=== PATIENT | female | born 1975 | race African-American/Black ===

== ENCOUNTER 2020-10-13 11:13 | Inpatient (IN) | payer OTHER ==
[2020-10-13 15:40] VITALS: BMI 36.8
[2020-10-13] MEDS ORDERED: MAGNESIUM CITRATE 300 ML BOTTLE PO PRN (16:56)
[2020-10-13] MEDS ORDERED: ONDANSETRON *ODT* 4 MG TABLET SL PRN (16:56)
[2020-10-13] MEDS ORDERED: ACETAMINOPHEN 325 MG TABLET (FP) PO PRN ×2 (16:56)
[2020-10-13] MEDS ORDERED: MAGNESIUM HYDROX 2400MG/30ML ORAL SUSPENSION 30 ML CUP PO PRN (16:56)
[2020-10-13] MEDS ORDERED: NICOTINE POLACRILEX 2 MG GUM BUC PRN (16:56)
[2020-10-13] MEDS ORDERED: chlordiazePOXIDE HCL 25 MG CAPSULE PO PRN (16:56)
[2020-10-13] MEDS ORDERED: MENTHOL/PHENOL 1 EACH UD MM PRN (16:56)
[2020-10-13] MEDS ORDERED: MAG HYDROX/AL HYDROX/SIMETH 30 ML UNIT-DOSE CUP PO PRN (16:56)
[2020-10-13] MEDS ORDERED: BISMUTH SUBSALICYLATE 524 MG/30 ML UD PO PRN (16:56)
[2020-10-13] MEDS ORDERED: chlordiazePOXIDE HCL 25 MG CAPSULE PO ONE (17:30)
[2020-10-13] MEDS ORDERED: METHADONE HCL 10 MG TABLET (FOR DETOX USE ONLY) PO ONE (17:45)
[2020-10-13] MEDS: THIAMINE HCL 100 MG TABLET (FP) PO SCH (22:07)
[2020-10-13] MEDS: chlordiazePOXIDE HCL 25 MG CAPSULE PO SCH (22:08)
[2020-10-13] MEDS: MELATONIN 5 MG TABLETS PO PRN (22:09)
[2020-10-13] MEDS: METHOCARBAMOL 500 MG TABLET PO PRN (22:09)
[2020-10-14] MEDS: cloNIDine HCL 0.1 MG TABLET PO PRN ×3 (00:08→21:01)
[2020-10-14] MEDS: chlordiazePOXIDE HCL 25 MG CAPSULE PO SCH ×4 (06:00→22:05)
[2020-10-14] MEDS ORDERED: METHADONE HCL 5 MG TABLET (FOR DETOX USE ONLY) ONE (08:14)
[2020-10-14] MEDS ORDERED: METHADONE HCL 10 MG TABLET (FOR DETOX USE ONLY) ONE (08:14)
[2020-10-14] MEDS ORDERED: METHADONE (DETOX) 20 MG, METHADONE (DETOX) 5 MG PO ONE (10:00)
[2020-10-14] MEDS: PRENATAL VITAMINS W/ FOLIC ACID TABLET (FP) PO SCH (10:09)
[2020-10-14] MEDS: FAMOTIDINE 20 MG TABLET PO SCH (10:10)
[2020-10-14] MEDS: NICOTINE 14 MG/24 HOURS TOPICAL PATCH TD SCH (10:11)
[2020-10-14] MEDS: IBUPROFEN 400 MG TABLET (FP) PO PRN (10:12)
[2020-10-14] MEDS ORDERED: MASKS NR ONE (11:39)
[2020-10-14 13:05] LABS: HEMATOCRIT 34.5 % (32.4-45.2); HEMOGLOBIN 11.3 GM/dL (10.7-15.3); MCH 27.6 pg (25.7-33.7); MCHC 32.9 g/dl (32.0-36.0); MEAN CELL VOLUME 83.9 fl (80-96); MEAN PLT VOLUME 9.4 fl (7.5-11.1); PLATELET COUNT 315 K/MM3 (134-434); RBC 4.11 M/mm3 (3.60-5.2); RDW 16.1 % (11.6-15.6); WHITE BLOOD COUNT 7.8 K/mm3 (4.0-10.0)
[2020-10-14 13:09] LABS: POTASSIUM 4.4 mmol/L (3.5-5.1)
[2020-10-14 13:14] LABS: CALCIUM 8.6 mg/dL (8.5-10.1)
[2020-10-14 13:15] LABS: ALBUMIN 2.7 g/dl (3.4-5.0); BLOOD UREA NITROGEN 14.1 mg/dL (7-18)
[2020-10-14 13:19] LABS: BILIRUBIN,TOTAL 0.7 mg/dL (0.2-1); CREATININE 0.7 mg/dL (0.55-1.3)
[2020-10-14] MEDS: DIVALPROEX SODIUM 500 MG TABLET E.C. PO SCH (22:06)
[2020-10-14] MEDS: OLANZapine 10 MG TABLET PO SCH (22:06)
[2020-10-14] MEDS: MELATONIN 5 MG TABLETS PO PRN (22:07)
[2020-10-14] MEDS: traZODone HCL 50 MG TABLET (FP) PO SCH (22:07)
[2020-10-14] MEDS: THIAMINE HCL 100 MG TABLET (FP) PO SCH (22:07)
[2020-10-15] MEDS: chlordiazePOXIDE HCL 25 MG CAPSULE PO SCH ×4 (06:12→22:33)
[2020-10-15] MEDS ORDERED: METHADONE HCL 10 MG TABLET (FOR DETOX USE ONLY) PO ONE (10:00)
[2020-10-15] MEDS: DIVALPROEX SODIUM 500 MG TABLET E.C. PO SCH ×2 (10:07→22:32)
[2020-10-15] MEDS: METHOCARBAMOL 500 MG TABLET PO PRN (10:07)
[2020-10-15] MEDS: PRENATAL VITAMINS W/ FOLIC ACID TABLET (FP) PO SCH (10:07)
[2020-10-15] MEDS: FAMOTIDINE 20 MG TABLET PO SCH (10:08)
[2020-10-15] MEDS: NICOTINE 14 MG/24 HOURS TOPICAL PATCH TD SCH (10:09)
[2020-10-15] MEDS ORDERED: FLU VACCINE (FLULAVAL) PF 60 MCG/0.5 ML SYRINGE 2020-2021 IM ONE (12:00)
[2020-10-15] MEDS: IBUPROFEN 400 MG TABLET (FP) PO PRN (17:39)
[2020-10-15] MEDS: OLANZapine 10 MG TABLET PO SCH (22:32)
[2020-10-15] MEDS: traZODone HCL 50 MG TABLET (FP) PO SCH (22:32)
[2020-10-15] MEDS: THIAMINE HCL 100 MG TABLET (FP) PO SCH (23:25)
[2020-10-16] MEDS ORDERED: chlordiazePOXIDE HCL 10 MG CAPSULE PO PRN
[2020-10-16] MEDS: chlordiazePOXIDE HCL 10 MG CAPSULE PO SCH ×4 (05:52→22:12)
[2020-10-16] MEDS ORDERED: METHADONE HCL 5 MG TABLET (FOR DETOX USE ONLY) ONE (09:31)
[2020-10-16] MEDS ORDERED: METHADONE HCL 10 MG TABLET (FOR DETOX USE ONLY) ONE (09:31)
[2020-10-16] MEDS ORDERED: METHADONE (DETOX) 10 MG, METHADONE (DETOX) 5 MG PO ONE (10:00)
[2020-10-16] MEDS: DIVALPROEX SODIUM 500 MG TABLET E.C. PO SCH ×2 (10:22→22:12)
[2020-10-16] MEDS: PRENATAL VITAMINS W/ FOLIC ACID TABLET (FP) PO SCH (10:22)
[2020-10-16] MEDS: NICOTINE 14 MG/24 HOURS TOPICAL PATCH TD SCH (10:23)
[2020-10-16] MEDS: FAMOTIDINE 20 MG TABLET PO SCH (10:23)
[2020-10-16] MEDS: OLANZapine 10 MG TABLET PO SCH (22:12)
[2020-10-16] MEDS: traZODone HCL 50 MG TABLET (FP) PO SCH (22:12)
[2020-10-16] MEDS: THIAMINE HCL 100 MG TABLET (FP) PO SCH (22:12)
[2020-10-16] MEDS: MELATONIN 5 MG TABLETS PO PRN (22:30)
[2020-10-17] MEDS ORDERED: guaiFENesin/D-METHORPHAN HB 10 ML UNIT-DOSE CUPS PO PRN (06:49)
[2020-10-17] MEDS: NICOTINE 14 MG/24 HOURS TOPICAL PATCH TD SCH (09:43)
[2020-10-17] MEDS: DIVALPROEX SODIUM 500 MG TABLET E.C. PO SCH ×2 (09:47→22:24)
[2020-10-17] MEDS: FAMOTIDINE 20 MG TABLET PO SCH (09:47)
[2020-10-17] MEDS: PRENATAL VITAMINS W/ FOLIC ACID TABLET (FP) PO SCH (09:48)
[2020-10-17] MEDS ORDERED: guaiFENesin 200 MG/10 ML 10 ML UNIT-DOSE CUPS PO PRN (09:56)
[2020-10-17] MEDS ORDERED: METHADONE HCL 10 MG TABLET (FOR DETOX USE ONLY) PO ONE (10:00)
[2020-10-17] MEDS: chlordiazePOXIDE HCL 10 MG CAPSULE PO SCH ×2 (10:19→17:30)
[2020-10-17] MEDS ORDERED: MASKS NR ONE (18:32)
[2020-10-17] MEDS: METHOCARBAMOL 500 MG TABLET PO PRN (18:40)
[2020-10-17] MEDS ORDERED: OLANZapine 7.5 MG TABLET PO SCH (22:00)
[2020-10-17] MEDS: OLANZapine 10 MG TABLET PO SCH (22:24)
[2020-10-17] MEDS: traZODone HCL 50 MG TABLET (FP) PO SCH (22:24)
[2020-10-17] MEDS: THIAMINE HCL 100 MG TABLET (FP) PO SCH (22:24)
[2020-10-17] MEDS: MELATONIN 5 MG TABLETS PO PRN (22:24)
[2020-10-17] MEDS: IBUPROFEN 400 MG TABLET (FP) PO PRN (22:26)
[2020-10-18] MEDS ORDERED: chlordiazePOXIDE HCL 10 MG CAPSULE PO ONE (05:00)
[2020-10-18] MEDS ORDERED: METHADONE HCL 5 MG TABLET (FOR DETOX USE ONLY) PO ONE (06:00)
[2020-10-18] MEDS: DIVALPROEX SODIUM 500 MG TABLET E.C. PO SCH ×2 (09:41→21:26)
[2020-10-18] MEDS: PRENATAL VITAMINS W/ FOLIC ACID TABLET (FP) PO SCH (09:41)
[2020-10-18] MEDS: METHOCARBAMOL 500 MG TABLET PO PRN (09:41)
[2020-10-18] MEDS: IBUPROFEN 400 MG TABLET (FP) PO PRN ×2 (09:41→21:27)
[2020-10-18] MEDS: FAMOTIDINE 20 MG TABLET PO SCH (09:43)
[2020-10-18] MEDS: NICOTINE 14 MG/24 HOURS TOPICAL PATCH TD SCH (09:44)
[2020-10-18] MEDS ORDERED: MASKS NR ONE (18:31)
[2020-10-18] MEDS: OLANZapine 10 MG TABLET PO SCH (21:25)
[2020-10-18] MEDS: traZODone HCL 50 MG TABLET (FP) PO SCH (21:26)
[2020-10-18] MEDS: THIAMINE HCL 100 MG TABLET (FP) PO SCH (21:26)
[2020-10-18] MEDS: MELATONIN 5 MG TABLETS PO PRN (21:26)
[2020-10-19] MEDS: METHOCARBAMOL 500 MG TABLET PO PRN (06:41)
[2020-10-19] MEDS: PRENATAL VITAMINS W/ FOLIC ACID TABLET (FP) PO SCH (10:37)
[2020-10-19] MEDS: DIVALPROEX SODIUM 500 MG TABLET E.C. PO SCH ×2 (10:37→21:17)
[2020-10-19] MEDS: FAMOTIDINE 20 MG TABLET PO SCH (10:37)
[2020-10-19] MEDS: NICOTINE 14 MG/24 HOURS TOPICAL PATCH TD SCH (10:37)
[2020-10-19] MEDS ORDERED: MASKS NR ONE (18:18)
[2020-10-19] MEDS: OLANZapine 10 MG TABLET PO SCH (21:16)
[2020-10-19] MEDS: THIAMINE HCL 100 MG TABLET (FP) PO SCH (21:17)
[2020-10-19] MEDS: traZODone HCL 50 MG TABLET (FP) PO SCH (21:17)
[2020-10-20] MEDS: NICOTINE 14 MG/24 HOURS TOPICAL PATCH TD SCH (10:35)
[2020-10-20] MEDS: FAMOTIDINE 20 MG TABLET PO SCH (10:35)
[2020-10-20] MEDS: PRENATAL VITAMINS W/ FOLIC ACID TABLET (FP) PO SCH (10:35)
[2020-10-20] MEDS: DIVALPROEX SODIUM 500 MG TABLET E.C. PO SCH ×2 (10:35→21:17)
[2020-10-20] MEDS: IBUPROFEN 400 MG TABLET (FP) PO PRN (12:43)
[2020-10-20] MEDS: traZODone HCL 50 MG TABLET (FP) PO SCH (21:18)
[2020-10-20] MEDS: THIAMINE HCL 100 MG TABLET (FP) PO SCH (21:18)
[2020-10-20] MEDS: OLANZapine 10 MG TABLET PO SCH (21:18)
[2020-10-21] MEDS: PRENATAL VITAMINS W/ FOLIC ACID TABLET (FP) PO SCH (10:43)
[2020-10-21] MEDS: DIVALPROEX SODIUM 500 MG TABLET E.C. PO SCH ×2 (10:43→21:14)
[2020-10-21] MEDS: FAMOTIDINE 20 MG TABLET PO SCH (10:43)
[2020-10-21] MEDS: NICOTINE 14 MG/24 HOURS TOPICAL PATCH TD SCH (10:43)
[2020-10-21] MEDS: busPIRone HCL 5 MG TABLET PO PRN (12:56)
[2020-10-21] MEDS ORDERED: MASKS NR ONE (13:01)
[2020-10-21] MEDS: THIAMINE HCL 100 MG TABLET (FP) PO SCH (21:13)
[2020-10-21] MEDS: MELATONIN 5 MG TABLETS PO PRN (21:13)
[2020-10-21] MEDS: OLANZapine 10 MG TABLET PO SCH (21:13)
[2020-10-21] MEDS: traZODone HCL 50 MG TABLET (FP) PO SCH (21:14)
[2020-10-21] MEDS: IBUPROFEN 400 MG TABLET (FP) PO PRN (21:14)
[2020-10-22] MEDS: DIVALPROEX SODIUM 500 MG TABLET E.C. PO SCH ×2 (10:16→21:17)
[2020-10-22] MEDS: NICOTINE 14 MG/24 HOURS TOPICAL PATCH TD SCH (10:16)
[2020-10-22] MEDS: PRENATAL VITAMINS W/ FOLIC ACID TABLET (FP) PO SCH (10:16)
[2020-10-22] MEDS: FAMOTIDINE 20 MG TABLET PO SCH (10:16)
[2020-10-22] MEDS: IBUPROFEN 400 MG TABLET (FP) PO PRN (16:54)
[2020-10-22] MEDS: OLANZapine 10 MG TABLET PO SCH (21:17)
[2020-10-22] MEDS: traZODone HCL 50 MG TABLET (FP) PO SCH (21:17)
[2020-10-22] MEDS: THIAMINE HCL 100 MG TABLET (FP) PO SCH (21:17)
[2020-10-22] MEDS: MELATONIN 5 MG TABLETS PO PRN (21:17)
[2020-10-22] MEDS: busPIRone HCL 5 MG TABLET PO PRN (21:20)
[2020-10-23] MEDS: DIVALPROEX SODIUM 500 MG TABLET E.C. PO SCH ×2 (10:38→21:23)
[2020-10-23] MEDS: PRENATAL VITAMINS W/ FOLIC ACID TABLET (FP) PO SCH (10:38)
[2020-10-23] MEDS: NICOTINE 14 MG/24 HOURS TOPICAL PATCH TD SCH (10:38)
[2020-10-23] MEDS: FAMOTIDINE 20 MG TABLET PO SCH (10:38)
[2020-10-23] MEDS: traZODone HCL 50 MG TABLET (FP) PO SCH (21:22)
[2020-10-23] MEDS: CYCLOBENZAPRINE HCL 5 MG TABLET PO SCH (21:23)
[2020-10-23] MEDS: METHYL SALICYLATE/MENTHOL OINT 30 GM TUBE TP SCH (21:23)
[2020-10-23] MEDS: OLANZapine 10 MG TABLET PO SCH (21:23)
[2020-10-23] MEDS: THIAMINE HCL 100 MG TABLET (FP) PO SCH (21:23)
[2020-10-23] MEDS: MELATONIN 5 MG TABLETS PO PRN (21:25)
[2020-10-24] MEDS: DIVALPROEX SODIUM 500 MG TABLET E.C. PO SCH ×2 (10:25→21:18)
[2020-10-24] MEDS: FAMOTIDINE 20 MG TABLET PO SCH (10:25)
[2020-10-24] MEDS: PRENATAL VITAMINS W/ FOLIC ACID TABLET (FP) PO SCH (10:25)
[2020-10-24] MEDS: METHYL SALICYLATE/MENTHOL OINT 30 GM TUBE TP SCH ×2 (10:26→21:20)
[2020-10-24] MEDS: NICOTINE 14 MG/24 HOURS TOPICAL PATCH TD SCH (10:26)
[2020-10-24] MEDS: IBUPROFEN 400 MG TABLET (FP) PO PRN (15:24)
[2020-10-24] MEDS: CYCLOBENZAPRINE HCL 5 MG TABLET PO SCH (21:18)
[2020-10-24] MEDS: MELATONIN 5 MG TABLETS PO PRN (21:18)
[2020-10-24] MEDS: busPIRone HCL 5 MG TABLET PO PRN (21:18)
[2020-10-24] MEDS: OLANZapine 10 MG TABLET PO SCH (21:18)
[2020-10-24] MEDS: traZODone HCL 50 MG TABLET (FP) PO SCH (21:19)
[2020-10-24] MEDS: THIAMINE HCL 100 MG TABLET (FP) PO SCH (21:19)
[2020-10-25] MEDS: PRENATAL VITAMINS W/ FOLIC ACID TABLET (FP) PO SCH (09:57)
[2020-10-25] MEDS: FAMOTIDINE 20 MG TABLET PO SCH (09:57)
[2020-10-25] MEDS: NICOTINE 14 MG/24 HOURS TOPICAL PATCH TD SCH (09:57)
[2020-10-25] MEDS: DIVALPROEX SODIUM 500 MG TABLET E.C. PO SCH ×2 (09:57→21:15)
[2020-10-25] MEDS: busPIRone HCL 5 MG TABLET PO PRN (10:24)
[2020-10-25] MEDS: METHYL SALICYLATE/MENTHOL OINT 30 GM TUBE TP SCH ×2 (10:26→21:19)
[2020-10-25] MEDS: CYCLOBENZAPRINE HCL 5 MG TABLET PO SCH (21:15)
[2020-10-25] MEDS: OLANZapine 10 MG TABLET PO SCH (21:16)
[2020-10-25] MEDS: IBUPROFEN 400 MG TABLET (FP) PO PRN (21:16)
[2020-10-25] MEDS: THIAMINE HCL 100 MG TABLET (FP) PO SCH (21:16)
[2020-10-25] MEDS: MELATONIN 5 MG TABLETS PO PRN (21:16)
[2020-10-25] MEDS: traZODone HCL 50 MG TABLET (FP) PO SCH (21:16)
[2020-10-26] MEDS: DIVALPROEX SODIUM 500 MG TABLET E.C. PO SCH ×2 (10:25→21:25)
[2020-10-26] MEDS: FAMOTIDINE 20 MG TABLET PO SCH (10:25)
[2020-10-26] MEDS: PRENATAL VITAMINS W/ FOLIC ACID TABLET (FP) PO SCH (10:25)
[2020-10-26] MEDS: NICOTINE 14 MG/24 HOURS TOPICAL PATCH TD SCH (10:25)
[2020-10-26] MEDS: METHYL SALICYLATE/MENTHOL OINT 30 GM TUBE TP SCH ×2 (10:25→21:26)
[2020-10-26] MEDS: IBUPROFEN 400 MG TABLET (FP) PO PRN (10:26)
[2020-10-26] MEDS: busPIRone HCL 5 MG TABLET PO PRN ×2 (10:26→21:26)
[2020-10-26] MEDS: CYCLOBENZAPRINE HCL 5 MG TABLET PO SCH (21:25)
[2020-10-26] MEDS: OLANZapine 10 MG TABLET PO SCH (21:26)
[2020-10-26] MEDS: MELATONIN 5 MG TABLETS PO PRN (21:26)
[2020-10-26] MEDS: traZODone HCL 50 MG TABLET (FP) PO SCH (21:26)
[2020-10-26] MEDS: THIAMINE HCL 100 MG TABLET (FP) PO SCH (21:26)
[2020-10-27] MEDS: FAMOTIDINE 20 MG TABLET PO SCH (10:12)
[2020-10-27] MEDS: DIVALPROEX SODIUM 500 MG TABLET E.C. PO SCH (10:12)
[2020-10-27] MEDS: IBUPROFEN 400 MG TABLET (FP) PO PRN (10:12)
[2020-10-27] MEDS: NICOTINE 14 MG/24 HOURS TOPICAL PATCH TD SCH (10:12)
[2020-10-27] MEDS: PRENATAL VITAMINS W/ FOLIC ACID TABLET (FP) PO SCH (10:12)
[2020-10-27] MEDS: METHYL SALICYLATE/MENTHOL OINT 30 GM TUBE TP SCH ×2 (10:14→21:12)
[2020-10-27] MEDS: OLANZapine 7.5 MG TABLET PO SCH (21:09)
[2020-10-27] MEDS: CYCLOBENZAPRINE HCL 5 MG TABLET PO SCH (21:10)
[2020-10-27] MEDS: traZODone HCL 50 MG TABLET (FP) PO SCH (21:10)
[2020-10-27] MEDS: DIVALPROEX SODIUM 250 MG TABLET E.C. PO SCH (21:10)
[2020-10-27] MEDS: THIAMINE HCL 100 MG TABLET (FP) PO SCH (21:10)
[2020-10-27] MEDS: MELATONIN 5 MG TABLETS PO PRN (21:11)
[2020-10-28] MEDS: DIVALPROEX SODIUM 250 MG TABLET E.C. PO SCH ×2 (10:15→21:41)
[2020-10-28] MEDS: PRENATAL VITAMINS W/ FOLIC ACID TABLET (FP) PO SCH (10:15)
[2020-10-28] MEDS: FAMOTIDINE 20 MG TABLET PO SCH (10:16)
[2020-10-28] MEDS: NICOTINE 14 MG/24 HOURS TOPICAL PATCH TD SCH (10:16)
[2020-10-28] MEDS: METHYL SALICYLATE/MENTHOL OINT 30 GM TUBE TP SCH ×2 (10:32→21:44)
[2020-10-28] MEDS: OLANZapine 7.5 MG TABLET PO SCH (21:41)
[2020-10-28] MEDS: CYCLOBENZAPRINE HCL 5 MG TABLET PO SCH (21:41)
[2020-10-28] MEDS: THIAMINE HCL 100 MG TABLET (FP) PO SCH (21:42)
[2020-10-28] MEDS: traZODone HCL 50 MG TABLET (FP) PO SCH (21:42)
[2020-10-28] MEDS: MELATONIN 5 MG TABLETS PO PRN (21:42)
[2020-10-28] MEDS: IBUPROFEN 400 MG TABLET (FP) PO PRN (21:43)
[2020-10-29] MEDS: DIVALPROEX SODIUM 250 MG TABLET E.C. PO SCH ×2 (10:25→21:19)
[2020-10-29] MEDS: PRENATAL VITAMINS W/ FOLIC ACID TABLET (FP) PO SCH (10:25)
[2020-10-29] MEDS: METHYL SALICYLATE/MENTHOL OINT 30 GM TUBE TP SCH ×2 (10:26→21:20)
[2020-10-29] MEDS: FAMOTIDINE 20 MG TABLET PO SCH (10:26)
[2020-10-29] MEDS: NICOTINE 14 MG/24 HOURS TOPICAL PATCH TD SCH (10:26)
[2020-10-29] MEDS: OLANZapine 7.5 MG TABLET PO SCH (21:19)
[2020-10-29] MEDS: CYCLOBENZAPRINE HCL 5 MG TABLET PO SCH (21:19)
[2020-10-29] MEDS: MELATONIN 5 MG TABLETS PO PRN (21:20)
[2020-10-29] MEDS: traZODone HCL 50 MG TABLET (FP) PO SCH (21:20)
[2020-10-29] MEDS: THIAMINE HCL 100 MG TABLET (FP) PO SCH (21:20)
[2020-10-29] MEDS: busPIRone HCL 5 MG TABLET PO PRN (22:33)
[2020-10-30] MEDS: DIVALPROEX SODIUM 250 MG TABLET E.C. PO SCH ×2 (10:55→21:23)
[2020-10-30] MEDS: PRENATAL VITAMINS W/ FOLIC ACID TABLET (FP) PO SCH (10:55)
[2020-10-30] MEDS: busPIRone HCL 5 MG TABLET PO PRN ×2 (10:56→21:23)
[2020-10-30] MEDS: FAMOTIDINE 20 MG TABLET PO SCH (10:56)
[2020-10-30] MEDS: NICOTINE 14 MG/24 HOURS TOPICAL PATCH TD SCH (10:56)
[2020-10-30] MEDS: METHYL SALICYLATE/MENTHOL OINT 30 GM TUBE TP SCH ×2 (10:57→21:25)
[2020-10-30] MEDS: CYCLOBENZAPRINE HCL 5 MG TABLET PO SCH (21:23)
[2020-10-30] MEDS: OLANZapine 7.5 MG TABLET PO SCH (21:24)
[2020-10-30] MEDS: MELATONIN 5 MG TABLETS PO PRN (21:24)
[2020-10-30] MEDS: THIAMINE HCL 100 MG TABLET (FP) PO SCH (21:24)
[2020-10-30] MEDS: traZODone HCL 50 MG TABLET (FP) PO SCH (21:24)
[2020-10-31] MEDS: FAMOTIDINE 20 MG TABLET PO SCH ×2 (10:00→11:22)
[2020-10-31] MEDS: PRENATAL VITAMINS W/ FOLIC ACID TABLET (FP) PO SCH ×2 (10:34→11:19)
[2020-10-31] MEDS: DIVALPROEX SODIUM 250 MG TABLET E.C. PO SCH ×3 (11:00→21:16)
[2020-10-31] MEDS: METHYL SALICYLATE/MENTHOL OINT 30 GM TUBE TP SCH ×2 (11:21→21:17)
[2020-10-31] MEDS: NICOTINE 14 MG/24 HOURS TOPICAL PATCH TD SCH (11:21)
[2020-10-31] MEDS: MELATONIN 5 MG TABLETS PO PRN (21:16)
[2020-10-31] MEDS: traZODone HCL 50 MG TABLET (FP) PO SCH (21:16)
[2020-10-31] MEDS: OLANZapine 7.5 MG TABLET PO SCH (21:16)
[2020-10-31] MEDS: THIAMINE HCL 100 MG TABLET (FP) PO SCH (21:16)
[2020-10-31] MEDS: busPIRone HCL 5 MG TABLET PO PRN (21:16)
[2020-10-31] MEDS: CYCLOBENZAPRINE HCL 5 MG TABLET PO SCH (21:17)
[2020-11-01] MEDS: FAMOTIDINE 20 MG TABLET PO SCH (10:24)
[2020-11-01] MEDS: DIVALPROEX SODIUM 250 MG TABLET E.C. PO SCH ×2 (10:24→21:35)
[2020-11-01] MEDS: PRENATAL VITAMINS W/ FOLIC ACID TABLET (FP) PO SCH (10:24)
[2020-11-01] MEDS: NICOTINE 14 MG/24 HOURS TOPICAL PATCH TD SCH (11:25)
[2020-11-01] MEDS: METHYL SALICYLATE/MENTHOL OINT 30 GM TUBE TP SCH ×2 (11:25→21:36)
[2020-11-01] MEDS: MELATONIN 5 MG TABLETS PO PRN (21:34)
[2020-11-01] MEDS: THIAMINE HCL 100 MG TABLET (FP) PO SCH (21:34)
[2020-11-01] MEDS: traZODone HCL 50 MG TABLET (FP) PO SCH (21:35)
[2020-11-01] MEDS: OLANZapine 7.5 MG TABLET PO SCH (21:35)
[2020-11-01] MEDS: CYCLOBENZAPRINE HCL 5 MG TABLET PO SCH (21:35)
[2020-11-01] MEDS: busPIRone HCL 5 MG TABLET PO PRN (21:35)
[2020-11-02] MEDS: FAMOTIDINE 20 MG TABLET PO SCH (10:50)
[2020-11-02] MEDS: DIVALPROEX SODIUM 250 MG TABLET E.C. PO SCH ×2 (10:50→21:16)
[2020-11-02] MEDS: PRENATAL VITAMINS W/ FOLIC ACID TABLET (FP) PO SCH (10:50)
[2020-11-02] MEDS: METHYL SALICYLATE/MENTHOL OINT 30 GM TUBE TP SCH ×2 (11:12→21:18)
[2020-11-02] MEDS: NICOTINE 14 MG/24 HOURS TOPICAL PATCH TD SCH (11:13)
[2020-11-02] MEDS: CYCLOBENZAPRINE HCL 5 MG TABLET PO SCH (21:17)
[2020-11-02] MEDS: OLANZapine 7.5 MG TABLET PO SCH (21:17)
[2020-11-02] MEDS: busPIRone HCL 5 MG TABLET PO PRN (21:17)
[2020-11-02] MEDS: traZODone HCL 50 MG TABLET (FP) PO SCH (21:18)
[2020-11-02] MEDS: THIAMINE HCL 100 MG TABLET (FP) PO SCH (21:18)
[2020-11-02] MEDS: MELATONIN 5 MG TABLETS PO PRN (21:18)
[2020-11-03] MEDS: FAMOTIDINE 20 MG TABLET PO SCH (10:43)
[2020-11-03] MEDS: METHYL SALICYLATE/MENTHOL OINT 30 GM TUBE TP SCH ×2 (10:43→21:19)
[2020-11-03] MEDS: PRENATAL VITAMINS W/ FOLIC ACID TABLET (FP) PO SCH (10:43)
[2020-11-03] MEDS: NICOTINE 14 MG/24 HOURS TOPICAL PATCH TD SCH (10:43)
[2020-11-03] MEDS: DIVALPROEX SODIUM 250 MG TABLET E.C. PO SCH ×2 (10:43→21:18)
[2020-11-03] MEDS ORDERED: PT OWN MED DRAWER 7, Y5N ONE (18:47)
[2020-11-03] MEDS: OLANZapine 7.5 MG TABLET PO SCH (21:18)
[2020-11-03] MEDS: busPIRone HCL 5 MG TABLET PO PRN (21:18)
[2020-11-03] MEDS: THIAMINE HCL 100 MG TABLET (FP) PO SCH (21:18)
[2020-11-03] MEDS: traZODone HCL 50 MG TABLET (FP) PO SCH (21:18)
[2020-11-03] MEDS: CYCLOBENZAPRINE HCL 5 MG TABLET PO SCH (21:18)
[2020-11-03] MEDS: MELATONIN 5 MG TABLETS PO PRN (21:18)
[2020-11-04] MEDS ORDERED: PT OWN MED DRAWER 7, Y5N ONE ×2 (08:49→19:03)
[2020-11-04] MEDS: METHYL SALICYLATE/MENTHOL OINT 30 GM TUBE TP SCH ×2 (11:19→21:08)
[2020-11-04] MEDS: DIVALPROEX SODIUM 250 MG TABLET E.C. PO SCH ×2 (11:20→21:07)
[2020-11-04] MEDS: FAMOTIDINE 20 MG TABLET PO SCH (11:21)
[2020-11-04] MEDS: busPIRone HCL 5 MG TABLET PO PRN ×2 (11:21→21:07)
[2020-11-04] MEDS: NICOTINE 14 MG/24 HOURS TOPICAL PATCH TD SCH (11:21)
[2020-11-04] MEDS: PRENATAL VITAMINS W/ FOLIC ACID TABLET (FP) PO SCH (11:21)
[2020-11-04] MEDS: OLANZapine 7.5 MG TABLET PO SCH (21:07)
[2020-11-04] MEDS: MELATONIN 5 MG TABLETS PO PRN (21:07)
[2020-11-04] MEDS: CYCLOBENZAPRINE HCL 5 MG TABLET PO SCH (21:07)
[2020-11-04] MEDS: THIAMINE HCL 100 MG TABLET (FP) PO SCH (21:07)
[2020-11-04] MEDS: traZODone HCL 50 MG TABLET (FP) PO SCH (21:08)
[2020-11-05] MEDS ORDERED: PT OWN MED DRAWER 7, Y5N ONE ×2 (08:57→18:42)
[2020-11-05] MEDS: FAMOTIDINE 20 MG TABLET PO SCH (11:00)
[2020-11-05] MEDS: METHYL SALICYLATE/MENTHOL OINT 30 GM TUBE TP SCH ×2 (11:00→21:25)
[2020-11-05] MEDS: NICOTINE 14 MG/24 HOURS TOPICAL PATCH TD SCH (11:00)
[2020-11-05] MEDS: PRENATAL VITAMINS W/ FOLIC ACID TABLET (FP) PO SCH (11:00)
[2020-11-05] MEDS: DIVALPROEX SODIUM 250 MG TABLET E.C. PO SCH ×2 (11:00→21:24)
[2020-11-05] MEDS: CYCLOBENZAPRINE HCL 5 MG TABLET PO SCH (21:23)
[2020-11-05] MEDS: THIAMINE HCL 100 MG TABLET (FP) PO SCH (21:23)
[2020-11-05] MEDS: MELATONIN 5 MG TABLETS PO PRN (21:23)
[2020-11-05] MEDS: OLANZapine 7.5 MG TABLET PO SCH (21:24)
[2020-11-05] MEDS: busPIRone HCL 5 MG TABLET PO PRN (21:24)
[2020-11-05] MEDS: traZODone HCL 50 MG TABLET (FP) PO SCH (21:24)
[2020-11-06] MEDS ORDERED: PT OWN MED DRAWER 7, Y5N ONE (09:08)
[2020-11-06] MEDS: NICOTINE 14 MG/24 HOURS TOPICAL PATCH TD SCH (10:59)
[2020-11-06] MEDS: FAMOTIDINE 20 MG TABLET PO SCH (10:59)
[2020-11-06] MEDS: DIVALPROEX SODIUM 250 MG TABLET E.C. PO SCH ×2 (11:00→21:22)
[2020-11-06] MEDS: METHYL SALICYLATE/MENTHOL OINT 30 GM TUBE TP SCH ×2 (11:01→21:23)
[2020-11-06] MEDS: PRENATAL VITAMINS W/ FOLIC ACID TABLET (FP) PO SCH (11:01)
[2020-11-06] MEDS: busPIRone HCL 5 MG TABLET PO PRN ×2 (12:04→21:21)
[2020-11-06] MEDS: CYCLOBENZAPRINE HCL 5 MG TABLET PO SCH (21:21)
[2020-11-06] MEDS: traZODone HCL 50 MG TABLET (FP) PO SCH (21:21)
[2020-11-06] MEDS: THIAMINE HCL 100 MG TABLET (FP) PO SCH (21:22)
[2020-11-06] MEDS: OLANZapine 7.5 MG TABLET PO SCH (21:22)
[2020-11-07] MEDS: DIVALPROEX SODIUM 250 MG TABLET E.C. PO SCH ×2 (10:44→21:30)
[2020-11-07] MEDS: PRENATAL VITAMINS W/ FOLIC ACID TABLET (FP) PO SCH (10:44)
[2020-11-07] MEDS: busPIRone HCL 5 MG TABLET PO PRN ×2 (10:44→21:31)
[2020-11-07] MEDS: NICOTINE 14 MG/24 HOURS TOPICAL PATCH TD SCH (10:45)
[2020-11-07] MEDS: FAMOTIDINE 20 MG TABLET PO SCH (10:45)
[2020-11-07] MEDS: METHYL SALICYLATE/MENTHOL OINT 30 GM TUBE TP SCH ×2 (10:45→21:32)
[2020-11-07] MEDS: OLANZapine 7.5 MG TABLET PO SCH (21:30)
[2020-11-07] MEDS: THIAMINE HCL 100 MG TABLET (FP) PO SCH (21:31)
[2020-11-07] MEDS: CYCLOBENZAPRINE HCL 5 MG TABLET PO SCH (21:31)
[2020-11-07] MEDS: traZODone HCL 50 MG TABLET (FP) PO SCH (22:07)
[2020-11-07] MEDS: MELATONIN 5 MG TABLETS PO PRN (22:07)
[2020-11-08] MEDS: METHYL SALICYLATE/MENTHOL OINT 30 GM TUBE TP SCH ×2 (10:55→21:16)
[2020-11-08] MEDS: PRENATAL VITAMINS W/ FOLIC ACID TABLET (FP) PO SCH (10:55)
[2020-11-08] MEDS: DIVALPROEX SODIUM 250 MG TABLET E.C. PO SCH ×2 (10:55→21:15)
[2020-11-08] MEDS: NICOTINE 14 MG/24 HOURS TOPICAL PATCH TD SCH (10:55)
[2020-11-08] MEDS: FAMOTIDINE 20 MG TABLET PO SCH (10:55)
[2020-11-08] MEDS: busPIRone HCL 5 MG TABLET PO PRN ×2 (11:06→21:15)
[2020-11-08] MEDS ORDERED: PT OWN MED DRAWER 7, Y5N ONE (18:41)
[2020-11-08] MEDS: traZODone HCL 50 MG TABLET (FP) PO SCH (21:15)
[2020-11-08] MEDS: CYCLOBENZAPRINE HCL 5 MG TABLET PO SCH (21:15)
[2020-11-08] MEDS: MELATONIN 5 MG TABLETS PO PRN (21:15)
[2020-11-08] MEDS: OLANZapine 7.5 MG TABLET PO SCH (21:15)
[2020-11-08] MEDS: THIAMINE HCL 100 MG TABLET (FP) PO SCH (21:15)
[2020-11-09] MEDS: METHYL SALICYLATE/MENTHOL OINT 30 GM TUBE TP SCH ×2 (10:49→21:41)
[2020-11-09] MEDS: PRENATAL VITAMINS W/ FOLIC ACID TABLET (FP) PO SCH (10:49)
[2020-11-09] MEDS: DIVALPROEX SODIUM 250 MG TABLET E.C. PO SCH ×2 (10:49→21:39)
[2020-11-09] MEDS: FAMOTIDINE 20 MG TABLET PO SCH (10:49)
[2020-11-09] MEDS: NICOTINE 14 MG/24 HOURS TOPICAL PATCH TD SCH (10:49)
[2020-11-09] MEDS: busPIRone HCL 5 MG TABLET PO PRN ×2 (12:35→21:40)
[2020-11-09] MEDS: OLANZapine 7.5 MG TABLET PO SCH (21:39)
[2020-11-09] MEDS: CYCLOBENZAPRINE HCL 5 MG TABLET PO SCH (21:40)
[2020-11-09] MEDS: traZODone HCL 50 MG TABLET (FP) PO SCH (21:40)
[2020-11-09] MEDS: MELATONIN 5 MG TABLETS PO PRN (21:41)
[2020-11-09] MEDS: THIAMINE HCL 100 MG TABLET (FP) PO SCH (21:41)
[2020-11-10] MEDS: DIVALPROEX SODIUM 250 MG TABLET E.C. PO SCH ×2 (11:56→21:32)
[2020-11-10] MEDS: METHYL SALICYLATE/MENTHOL OINT 30 GM TUBE TP SCH ×2 (11:57→21:34)
[2020-11-10] MEDS: busPIRone HCL 5 MG TABLET PO PRN ×2 (11:57→21:32)
[2020-11-10] MEDS: FAMOTIDINE 20 MG TABLET PO SCH (11:57)
[2020-11-10] MEDS: NICOTINE 14 MG/24 HOURS TOPICAL PATCH TD SCH (11:57)
[2020-11-10] MEDS: PRENATAL VITAMINS W/ FOLIC ACID TABLET (FP) PO SCH (11:57)
[2020-11-10] MEDS: THIAMINE HCL 100 MG TABLET (FP) PO SCH (21:30)
[2020-11-10] MEDS: MELATONIN 5 MG TABLETS PO PRN (21:30)
[2020-11-10] MEDS: IBUPROFEN 400 MG TABLET (FP) PO PRN (21:31)
[2020-11-10] MEDS: traZODone HCL 50 MG TABLET (FP) PO SCH (21:31)
[2020-11-10] MEDS: OLANZapine 7.5 MG TABLET PO SCH (21:32)
[2020-11-10] MEDS: CYCLOBENZAPRINE HCL 5 MG TABLET PO SCH (21:33)
[2020-11-11] MEDS: PRENATAL VITAMINS W/ FOLIC ACID TABLET (FP) PO SCH (10:58)
[2020-11-11] MEDS: DIVALPROEX SODIUM 250 MG TABLET E.C. PO SCH ×2 (10:58→22:06)
[2020-11-11] MEDS: FAMOTIDINE 20 MG TABLET PO SCH (10:58)
[2020-11-11] MEDS: busPIRone HCL 5 MG TABLET PO PRN (10:59)
[2020-11-11] MEDS: NICOTINE 14 MG/24 HOURS TOPICAL PATCH TD SCH (10:59)
[2020-11-11] MEDS: METHYL SALICYLATE/MENTHOL OINT 30 GM TUBE TP SCH ×2 (10:59→21:39)
[2020-11-11] MEDS ORDERED: PT OWN MED DRAWER 7, Y5N ONE ×2 (19:42→21:38)
[2020-11-11] MEDS: IBUPROFEN 400 MG TABLET (FP) PO PRN (21:36)
[2020-11-11] MEDS: THIAMINE HCL 100 MG TABLET (FP) PO SCH (21:37)
[2020-11-11] MEDS: traZODone HCL 50 MG TABLET (FP) PO SCH (21:37)
[2020-11-11] MEDS: OLANZapine 7.5 MG TABLET PO SCH (21:37)
[2020-11-11] MEDS: CYCLOBENZAPRINE HCL 5 MG TABLET PO SCH (21:37)
[2020-11-12] MEDS: METHYL SALICYLATE/MENTHOL OINT 30 GM TUBE TP SCH ×2 (10:49→21:16)
[2020-11-12] MEDS: FAMOTIDINE 20 MG TABLET PO SCH (10:49)
[2020-11-12] MEDS: PRENATAL VITAMINS W/ FOLIC ACID TABLET (FP) PO SCH (10:49)
[2020-11-12] MEDS: NICOTINE 14 MG/24 HOURS TOPICAL PATCH TD SCH (10:49)
[2020-11-12] MEDS: DIVALPROEX SODIUM 250 MG TABLET E.C. PO SCH ×3 (10:49→21:15)
[2020-11-12] MEDS ORDERED: PT OWN MED DRAWER 7, Y5N ONE (19:41)
[2020-11-12] MEDS: THIAMINE HCL 100 MG TABLET (FP) PO SCH (21:14)
[2020-11-12] MEDS: MELATONIN 5 MG TABLETS PO PRN (21:14)
[2020-11-12] MEDS: traZODone HCL 50 MG TABLET (FP) PO SCH (21:15)
[2020-11-12] MEDS: busPIRone HCL 5 MG TABLET PO PRN (21:15)
[2020-11-12] MEDS: CYCLOBENZAPRINE HCL 5 MG TABLET PO SCH (21:15)
[2020-11-12] MEDS: OLANZapine 7.5 MG TABLET PO SCH (21:15)
[2020-11-13] MEDS: NICOTINE 14 MG/24 HOURS TOPICAL PATCH TD SCH (10:54)
[2020-11-13] MEDS: FAMOTIDINE 20 MG TABLET PO SCH (10:54)
[2020-11-13] MEDS: DIVALPROEX SODIUM 250 MG TABLET E.C. PO SCH ×2 (10:54→22:03)
[2020-11-13] MEDS: METHYL SALICYLATE/MENTHOL OINT 30 GM TUBE TP SCH ×2 (10:54→22:06)
[2020-11-13] MEDS: PRENATAL VITAMINS W/ FOLIC ACID TABLET (FP) PO SCH (10:54)
[2020-11-13] MEDS: busPIRone HCL 5 MG TABLET PO PRN ×2 (13:34→22:05)
[2020-11-13] MEDS: IBUPROFEN 400 MG TABLET (FP) PO PRN (13:34)
[2020-11-13] MEDS ORDERED: PT OWN MED DRAWER 7, Y5N ONE (21:14)
[2020-11-13] MEDS: OLANZapine 7.5 MG TABLET PO SCH (22:04)
[2020-11-13] MEDS: CYCLOBENZAPRINE HCL 5 MG TABLET PO SCH (22:04)
[2020-11-13] MEDS: traZODone HCL 50 MG TABLET (FP) PO SCH (22:04)
[2020-11-13] MEDS: THIAMINE HCL 100 MG TABLET (FP) PO SCH (22:05)
[2020-11-13] MEDS: MELATONIN 5 MG TABLETS PO PRN (22:05)
[2020-11-14 07:07] VITALS: BP 119/73; PULSE 78; TEMP 98.1
[2020-11-14] MEDS: DIVALPROEX SODIUM 250 MG TABLET E.C. PO SCH (09:41)
[2020-11-14] MEDS: PRENATAL VITAMINS W/ FOLIC ACID TABLET (FP) PO SCH (09:41)
[2020-11-14] MEDS: busPIRone HCL 5 MG TABLET PO PRN (09:41)
[2020-11-14] MEDS: FAMOTIDINE 20 MG TABLET PO SCH (09:42)
[2020-11-14] MEDS: NICOTINE 14 MG/24 HOURS TOPICAL PATCH TD SCH (09:42)
[2020-11-14] MEDS: METHYL SALICYLATE/MENTHOL OINT 30 GM TUBE TP SCH (09:42)
== END 2020-11-14 09:46 | disposition other institution (70) | DRG 895 ==
LOC: YASAS 11:13 → Y3N 15:26 → Y3W 10-18 11:16
PROVIDERS: ADMIT Allergy & Immunology; ATTEND Psychiatry & Neurology Psychiatry
PROC: HZ2ZZZZ Detoxification Services for Substance Abuse Treatment (ICD-10-PCS; 2020-10-13)
PROC: HZ42ZZZ Group Counseling for Substance Abuse Treatment, Cognitive-Behavioral (ICD-10-PCS; principal; 2020-10-18)
DX: F11.20 Opioid dependence, uncomplicated (principal); F14.20 Cocaine dependence, uncomplicated; F10.20 Alcohol dependence, uncomplicated; F12.20 Cannabis dependence, uncomplicated; F17.210 Nicotine dependence, cigarettes, uncomplicated; F31.9 Bipolar disorder, unspecified; F19.24 Other psychoactive substance dependence with psychoactive substance-induced mood disorder; F39 Unspecified mood [affective] disorder; E88.09 Other disorders of plasma-protein metabolism, not elsewhere classified; D57.3 Sickle-cell trait; G47.00 Insomnia, unspecified; I89.0 Lymphedema, not elsewhere classified; K21.9 Gastro-esophageal reflux disease without esophagitis; M25.561 Pain in right knee; M54.5 Low back pain; G89.29 Other chronic pain; R94.31 Abnormal electrocardiogram [ECG] [EKG]; E66.9 Obesity, unspecified; Z68.34 Body mass index [BMI] 34.0-34.9, adult; Z91.5 Personal history of self-harm; Y04.2XXA Assault by strike against or bumped into by another person, initial encounter; Y93.89 Activity, other specified; Y92.238 Other place in hospital as the place of occurrence of the external cause; Y99.8 Other external cause status
CPT/HCPCS: 36415; 73560-TC-RT-FY; 80053; 80164; 85027; 86780; 93005; 93010; C9803; G0008; J0735; Q2036; U0003

== ENCOUNTER 2022-05-28 11:56 | Inpatient (IN) | payer OTHER ==
[2022-05-28 12:43] VITALS: BMI 26.9
[2022-05-28] MEDS ORDERED: ONDANSETRON *ODT* 4 MG TABLET SL PRN (13:07)
[2022-05-28] MEDS ORDERED: MAGNESIUM CITRATE 300 ML BOTTLE PO PRN (13:07)
[2022-05-28] MEDS ORDERED: ACETAMINOPHEN 325 MG TABLET (FP) PO PRN (13:07)
[2022-05-28] MEDS ORDERED: NICOTINE 10 MG CARTRIDGE (INHALER) IH PRN (13:07)
[2022-05-28] MEDS ORDERED: IBUPROFEN 400 MG TABLET (FP) PO PRN (13:07)
[2022-05-28] MEDS ORDERED: DICYCLOMINE HCL 10 MG CAPSULE PO PRN (13:07)
[2022-05-28] MEDS ORDERED: BENZOCAINE/MENTHOL (CHLORASEPTIC ) LOZENGE MM PRN (13:07)
[2022-05-28] MEDS ORDERED: LOPERAMIDE HCL 2 MG CAPSULE PO PRN (13:07)
[2022-05-28] MEDS ORDERED: chlordiazePOXIDE HCL 25 MG CAPSULE PO PRN (13:07)
[2022-05-28] MEDS ORDERED: MAG HYDROX/AL HYDROX/SIMETH 30 ML UNIT-DOSE CUP PO PRN (13:07)
[2022-05-28] MEDS ORDERED: BISMUTH SUBSALICYLATE 524 MG/30 ML PO PRN (13:07)
[2022-05-28] MEDS ORDERED: IBUPROFEN 600 MG TABLET (FP) PO PRN (13:07)
[2022-05-28] MEDS ORDERED: MAGNESIUM HYDROX 2400MG/30ML ORAL SUSPENSION 30 ML CUP PO PRN (13:07)
[2022-05-28] MEDS ORDERED: cloNIDine HCL 0.1 MG TABLET PO PRN (13:07)
[2022-05-28] MEDS ORDERED: methaDONE HCL 10 MG TABLET (FOR DETOX USE ONLY) PO ONE (13:45)
[2022-05-28] MEDS: chlordiazePOXIDE HCL 25 MG CAPSULE PO SCH ×3 (14:22→22:53)
[2022-05-28] MEDS: hydrOXYzine PAMOATE 25 MG CAPSULE (FP) PO SCH ×3 (14:40→22:53)
[2022-05-28] MEDS: PRENATAL VITAMINS W/ FOLIC ACID TABLET (FP) PO SCH (14:40)
[2022-05-28] MEDS: METHOCARBAMOL 500 MG TABLET PO PRN (17:43)
[2022-05-28] MEDS: ACETAMINOPHEN 325 MG TABLET (FP) PO PRN (17:43)
[2022-05-28] MEDS: MELATONIN 5 MG TABLETS PO SCH (22:53)
[2022-05-28] MEDS: THIAMINE HCL 100 MG TABLET (FP) PO SCH (22:53)
[2022-05-29] MEDS: chlordiazePOXIDE HCL 25 MG CAPSULE PO SCH ×4 (06:12→22:29)
[2022-05-29] MEDS: hydrOXYzine PAMOATE 25 MG CAPSULE (FP) PO SCH ×5 (06:12→22:29)
[2022-05-29] MEDS: PRENATAL VITAMINS W/ FOLIC ACID TABLET (FP) PO SCH (10:50)
[2022-05-29] MEDS: ACETAMINOPHEN 325 MG TABLET (FP) PO PRN (10:53)
[2022-05-29 11:44] LABS: HEMATOCRIT 38.1 % (32.4-45.2); HEMOGLOBIN 12.8 GM/dL (10.7-15.3); MCH 28.9 pg (25.7-33.7); MCHC 33.7 g/dl (32.0-36.0); MEAN CELL VOLUME 85.7 fl (80-96); MEAN PLT VOLUME 9.1 fl (7.5-11.1); PLATELET COUNT 311 10^3/uL (134-434); RBC 4.44 M/mm3 (3.60-5.2); RDW 14.9 % (11.6-15.6)
[2022-05-29 12:11] LABS: CALCIUM 8.7 mg/dL (8.5-10.1)
[2022-05-29 12:12] LABS: ALBUMIN 2.9 g/dl (3.4-5.0); BLOOD UREA NITROGEN 10.4 mg/dL (7-18)
[2022-05-29 12:15] LABS: CREATININE 0.6 mg/dL (0.55-1.3)
[2022-05-29 12:16] LABS: BILIRUBIN,TOTAL 0.3 mg/dL (0.2-1); TOT PROT 5.9 g/dl (6.4-8.2)
[2022-05-29] MEDS: METHOCARBAMOL 500 MG TABLET PO PRN (18:24)
[2022-05-29] MEDS: THIAMINE HCL 100 MG TABLET (FP) PO SCH (22:29)
[2022-05-29] MEDS: MELATONIN 5 MG TABLETS PO SCH (22:29)
[2022-05-30] MEDS: chlordiazePOXIDE HCL 25 MG CAPSULE PO SCH ×3 (05:19→18:31)
[2022-05-30] MEDS: hydrOXYzine PAMOATE 25 MG CAPSULE (FP) PO SCH ×4 (05:19→18:30)
[2022-05-30] MEDS ORDERED: methaDONE HCL 10 MG TABLET (FOR DETOX USE ONLY) PO ONE (10:00)
[2022-05-30] MEDS: METHOCARBAMOL 500 MG TABLET PO PRN (11:32)
[2022-05-30] MEDS: ACETAMINOPHEN 325 MG TABLET (FP) PO PRN (11:33)
[2022-05-30] MEDS: PRENATAL VITAMINS W/ FOLIC ACID TABLET (FP) PO SCH (11:46)
[2022-05-31] MEDS ORDERED: chlordiazePOXIDE HCL 10 MG CAPSULE PO PRN
[2022-05-31] MEDS: chlordiazePOXIDE HCL 25 MG CAPSULE PO SCH (00:01)
[2022-05-31] MEDS: THIAMINE HCL 100 MG TABLET (FP) PO SCH (00:02)
[2022-05-31] MEDS: hydrOXYzine PAMOATE 25 MG CAPSULE (FP) PO SCH ×5 (00:03→18:18)
[2022-05-31] MEDS: MELATONIN 5 MG TABLETS PO SCH (00:03)
[2022-05-31] MEDS: chlordiazePOXIDE HCL 10 MG CAPSULE PO SCH ×3 (06:12→18:18)
[2022-05-31] MEDS: PRENATAL VITAMINS W/ FOLIC ACID TABLET (FP) PO SCH (10:29)
[2022-06-01] MEDS: hydrOXYzine PAMOATE 25 MG CAPSULE (FP) PO SCH ×6 (00:34→21:54)
[2022-06-01] MEDS: THIAMINE HCL 100 MG TABLET (FP) PO SCH ×2 (00:34→21:54)
[2022-06-01] MEDS: MELATONIN 5 MG TABLETS PO SCH ×2 (00:34→21:54)
[2022-06-01] MEDS: chlordiazePOXIDE HCL 10 MG CAPSULE PO SCH ×2 (00:34→06:03)
[2022-06-01] MEDS ORDERED: methaDONE HCL 10 MG TABLET (FOR DETOX USE ONLY) PO ONE (10:00)
[2022-06-01] MEDS: PRENATAL VITAMINS W/ FOLIC ACID TABLET (FP) PO SCH (10:34)
[2022-06-01] MEDS: METHOCARBAMOL 500 MG TABLET PO PRN (10:35)
[2022-06-02] MEDS: chlordiazePOXIDE HCL 10 MG CAPSULE PO SCH (02:20)
[2022-06-02] MEDS ORDERED: chlordiazePOXIDE HCL 10 MG CAPSULE PO ONE (05:00)
[2022-06-02] MEDS: hydrOXYzine PAMOATE 25 MG CAPSULE (FP) PO SCH ×5 (07:22→21:47)
[2022-06-02] MEDS: PRENATAL VITAMINS W/ FOLIC ACID TABLET (FP) PO SCH (11:09)
[2022-06-02] MEDS: ACETAMINOPHEN 325 MG TABLET (FP) PO PRN ×2 (11:09→21:47)
[2022-06-02] MEDS: MELATONIN 5 MG TABLETS PO SCH (21:46)
[2022-06-02] MEDS: THIAMINE HCL 100 MG TABLET (FP) PO SCH (21:47)
[2022-06-03] MEDS: hydrOXYzine PAMOATE 25 MG CAPSULE (FP) PO SCH (07:11)
[2022-06-03 08:05] VITALS: RESP 18
[2022-06-03] MEDS ORDERED: hydrOXYzine PAMOATE 25 MG CAPSULE (FP) PO PRN (08:55)
[2022-06-03] MEDS: PRENATAL VITAMINS W/ FOLIC ACID TABLET (FP) PO SCH (10:38)
[2022-06-03] MEDS: DIVALPROEX SODIUM 250 MG TABLET E.C. PO SCH (21:16)
[2022-06-03] MEDS: traZODone HCL 50 MG TABLET (FP) PO SCH (21:16)
[2022-06-03] MEDS: MELATONIN 5 MG TABLETS PO SCH (21:17)
[2022-06-03] MEDS: OLANZapine 10 MG TABLET PO SCH (21:17)
[2022-06-03] MEDS: THIAMINE HCL 100 MG TABLET (FP) PO SCH (22:09)
[2022-06-04] MEDS: PRENATAL VITAMINS W/ FOLIC ACID TABLET (FP) PO SCH (10:45)
[2022-06-04] MEDS: DIVALPROEX SODIUM 250 MG TABLET E.C. PO SCH ×2 (10:45→21:13)
[2022-06-04] MEDS: OLANZapine 10 MG TABLET PO SCH (21:13)
[2022-06-04] MEDS: MELATONIN 5 MG TABLETS PO SCH (21:13)
[2022-06-04] MEDS: THIAMINE HCL 100 MG TABLET (FP) PO SCH (21:13)
[2022-06-04] MEDS: traZODone HCL 50 MG TABLET (FP) PO SCH (21:13)
[2022-06-05] MEDS: PRENATAL VITAMINS W/ FOLIC ACID TABLET (FP) PO SCH (10:34)
[2022-06-05] MEDS: DIVALPROEX SODIUM 250 MG TABLET E.C. PO SCH ×2 (10:34→21:15)
[2022-06-05] MEDS: traZODone HCL 50 MG TABLET (FP) PO SCH (21:15)
[2022-06-05] MEDS: THIAMINE HCL 100 MG TABLET (FP) PO SCH (21:15)
[2022-06-05] MEDS: OLANZapine 10 MG TABLET PO SCH (21:15)
[2022-06-05] MEDS: MELATONIN 5 MG TABLETS PO SCH (21:15)
[2022-06-06] MEDS: hydrOXYzine PAMOATE 25 MG CAPSULE (FP) PO PRN ×2 (10:35→21:34)
[2022-06-06] MEDS: PRENATAL VITAMINS W/ FOLIC ACID TABLET (FP) PO SCH (10:35)
[2022-06-06] MEDS: DIVALPROEX SODIUM 250 MG TABLET E.C. PO SCH ×2 (10:35→21:34)
[2022-06-06] MEDS: MELATONIN 5 MG TABLETS PO SCH (21:34)
[2022-06-06] MEDS: OLANZapine 10 MG TABLET PO SCH (21:34)
[2022-06-06] MEDS: THIAMINE HCL 100 MG TABLET (FP) PO SCH (21:34)
[2022-06-06] MEDS: traZODone HCL 50 MG TABLET (FP) PO SCH (21:34)
[2022-06-07] MEDS: DIVALPROEX SODIUM 250 MG TABLET E.C. PO SCH ×2 (10:41→21:07)
[2022-06-07] MEDS: PRENATAL VITAMINS W/ FOLIC ACID TABLET (FP) PO SCH (10:41)
[2022-06-07] MEDS: OLANZapine 10 MG TABLET PO SCH (21:06)
[2022-06-07] MEDS: THIAMINE HCL 100 MG TABLET (FP) PO SCH (21:06)
[2022-06-07] MEDS: ACETAMINOPHEN 325 MG TABLET (FP) PO PRN (21:07)
[2022-06-07] MEDS: traZODone HCL 50 MG TABLET (FP) PO SCH (21:07)
[2022-06-07] MEDS: MELATONIN 5 MG TABLETS PO SCH (21:56)
[2022-06-08] MEDS: DIVALPROEX SODIUM 250 MG TABLET E.C. PO SCH ×2 (10:39→21:05)
[2022-06-08] MEDS: PRENATAL VITAMINS W/ FOLIC ACID TABLET (FP) PO SCH (10:39)
[2022-06-08] MEDS: hydrOXYzine PAMOATE 25 MG CAPSULE (FP) PO PRN (21:05)
[2022-06-08] MEDS: traZODone HCL 50 MG TABLET (FP) PO SCH (21:05)
[2022-06-08] MEDS: OLANZapine 10 MG TABLET PO SCH (21:05)
[2022-06-08] MEDS: ACETAMINOPHEN 325 MG TABLET (FP) PO PRN (21:05)
[2022-06-08] MEDS: THIAMINE HCL 100 MG TABLET (FP) PO SCH (21:05)
[2022-06-08] MEDS: MELATONIN 5 MG TABLETS PO SCH (21:07)
[2022-06-09] MEDS: DIVALPROEX SODIUM 250 MG TABLET E.C. PO SCH ×2 (10:00→21:59)
[2022-06-09] MEDS: PRENATAL VITAMINS W/ FOLIC ACID TABLET (FP) PO SCH (11:00)
[2022-06-09] MEDS: MELATONIN 5 MG TABLETS PO SCH (21:59)
[2022-06-09] MEDS: OLANZapine 10 MG TABLET PO SCH (21:59)
[2022-06-09] MEDS: THIAMINE HCL 100 MG TABLET (FP) PO SCH (21:59)
[2022-06-09] MEDS: hydrOXYzine PAMOATE 25 MG CAPSULE (FP) PO PRN (21:59)
[2022-06-09] MEDS: traZODone HCL 50 MG TABLET (FP) PO SCH (21:59)
[2022-06-10] MEDS: PRENATAL VITAMINS W/ FOLIC ACID TABLET (FP) PO SCH (10:39)
[2022-06-10] MEDS: DIVALPROEX SODIUM 250 MG TABLET E.C. PO SCH ×2 (10:39→21:38)
[2022-06-10] MEDS: traZODone HCL 50 MG TABLET (FP) PO SCH (21:38)
[2022-06-10] MEDS: OLANZapine 10 MG TABLET PO SCH (21:38)
[2022-06-10] MEDS: MELATONIN 5 MG TABLETS PO SCH (21:38)
[2022-06-10] MEDS: THIAMINE HCL 100 MG TABLET (FP) PO SCH (21:38)
[2022-06-11] MEDS: DIVALPROEX SODIUM 250 MG TABLET E.C. PO SCH ×2 (12:05→21:10)
[2022-06-11] MEDS: PRENATAL VITAMINS W/ FOLIC ACID TABLET (FP) PO SCH (12:05)
[2022-06-11] MEDS: ACETAMINOPHEN 325 MG TABLET (FP) PO PRN (21:09)
[2022-06-11] MEDS: traZODone HCL 50 MG TABLET (FP) PO SCH (21:10)
[2022-06-11] MEDS: OLANZapine 10 MG TABLET PO SCH (21:10)
[2022-06-11] MEDS: THIAMINE HCL 100 MG TABLET (FP) PO SCH (21:10)
[2022-06-11] MEDS: MELATONIN 5 MG TABLETS PO SCH (21:11)
[2022-06-12] MEDS: PRENATAL VITAMINS W/ FOLIC ACID TABLET (FP) PO SCH (10:35)
[2022-06-12] MEDS: DIVALPROEX SODIUM 250 MG TABLET E.C. PO SCH ×2 (10:35→21:16)
[2022-06-12] MEDS: hydrOXYzine PAMOATE 25 MG CAPSULE (FP) PO PRN ×2 (10:35→21:17)
[2022-06-12] MEDS: ACETAMINOPHEN 325 MG TABLET (FP) PO PRN (10:35)
[2022-06-12] MEDS: METHOCARBAMOL 500 MG TABLET PO PRN (18:47)
[2022-06-12] MEDS: OLANZapine 10 MG TABLET PO SCH (21:15)
[2022-06-12] MEDS: traZODone HCL 50 MG TABLET (FP) PO SCH (21:15)
[2022-06-12] MEDS: THIAMINE HCL 100 MG TABLET (FP) PO SCH (21:16)
[2022-06-12] MEDS: MELATONIN 5 MG TABLETS PO SCH (21:16)
[2022-06-13] MEDS: DIVALPROEX SODIUM 250 MG TABLET E.C. PO SCH ×2 (10:27→21:19)
[2022-06-13] MEDS: PRENATAL VITAMINS W/ FOLIC ACID TABLET (FP) PO SCH (10:27)
[2022-06-13] MEDS: hydrOXYzine PAMOATE 25 MG CAPSULE (FP) PO PRN ×2 (10:27→21:19)
[2022-06-13] MEDS: ACETAMINOPHEN 325 MG TABLET (FP) PO PRN (18:42)
[2022-06-13] MEDS: traZODone HCL 50 MG TABLET (FP) PO SCH (21:19)
[2022-06-13] MEDS: METHOCARBAMOL 500 MG TABLET PO PRN (21:19)
[2022-06-13] MEDS: OLANZapine 10 MG TABLET PO SCH (21:19)
[2022-06-13] MEDS: THIAMINE HCL 100 MG TABLET (FP) PO SCH (21:19)
[2022-06-13] MEDS: MELATONIN 5 MG TABLETS PO SCH (21:20)
[2022-06-14] MEDS: DIVALPROEX SODIUM 250 MG TABLET E.C. PO SCH ×2 (10:31→22:34)
[2022-06-14] MEDS: PRENATAL VITAMINS W/ FOLIC ACID TABLET (FP) PO SCH (10:32)
[2022-06-14] MEDS: hydrOXYzine PAMOATE 25 MG CAPSULE (FP) PO PRN ×2 (12:18→22:34)
[2022-06-14] MEDS: METHOCARBAMOL 500 MG TABLET PO PRN ×2 (12:20→22:33)
[2022-06-14] MEDS: traZODone HCL 50 MG TABLET (FP) PO SCH (22:34)
[2022-06-14] MEDS: THIAMINE HCL 100 MG TABLET (FP) PO SCH (22:34)
[2022-06-14] MEDS: OLANZapine 10 MG TABLET PO SCH (22:35)
[2022-06-14] MEDS: MELATONIN 5 MG TABLETS PO SCH (22:35)
[2022-06-14] MEDS: ACETAMINOPHEN 325 MG TABLET (FP) PO PRN (22:37)
[2022-06-15] MEDS: DIVALPROEX SODIUM 250 MG TABLET E.C. PO SCH (10:51)
[2022-06-15] MEDS: PRENATAL VITAMINS W/ FOLIC ACID TABLET (FP) PO SCH (10:51)
[2022-06-15] MEDS ORDERED: SUVOREXANT 5 MG TABLET PO PRN (22:00)
[2022-06-15] MEDS: DIVALPROEX SODIUM 500 MG TABLET E.C. PO SCH (22:10)
[2022-06-15] MEDS: THIAMINE HCL 100 MG TABLET (FP) PO SCH (22:11)
[2022-06-15] MEDS: hydrOXYzine PAMOATE 25 MG CAPSULE (FP) PO PRN (22:11)
[2022-06-15] MEDS: traZODone HCL 50 MG TABLET (FP) PO SCH (22:11)
[2022-06-15] MEDS: OLANZapine 10 MG TABLET PO SCH (22:11)
[2022-06-16] MEDS: PRENATAL VITAMINS W/ FOLIC ACID TABLET (FP) PO SCH (10:31)
[2022-06-16] MEDS: DIVALPROEX SODIUM 500 MG TABLET E.C. PO SCH ×2 (10:31→23:20)
[2022-06-16 21:34] VITALS: BP 135/76; PULSE 99; TEMP 96.9
[2022-06-16] MEDS: THIAMINE HCL 100 MG TABLET (FP) PO SCH (23:20)
[2022-06-16] MEDS: traZODone HCL 50 MG TABLET (FP) PO SCH (23:20)
[2022-06-16] MEDS: OLANZapine 10 MG TABLET PO SCH (23:21)
== END 2022-06-17 09:23 | disposition short-term general hospital (02) | DRG 895 ==
LOC: YASAS 11:56 → Y6N 14:09 → Y5N 05-31 15:33 → Y6N 05-31 16:55 → Y5N 06-01 13:17
PROVIDERS: ADMIT Allergy & Immunology; ATTEND Psychiatry & Neurology Pain Medicine
PROC: HZ2ZZZZ Detoxification Services for Substance Abuse Treatment (ICD-10-PCS; 2022-05-28)
PROC: HZ42ZZZ Group Counseling for Substance Abuse Treatment, Cognitive-Behavioral (ICD-10-PCS; principal; 2022-06-01)
DX: F11.20 Opioid dependence, uncomplicated (principal); F14.20 Cocaine dependence, uncomplicated; F10.20 Alcohol dependence, uncomplicated; F12.20 Cannabis dependence, uncomplicated; F17.210 Nicotine dependence, cigarettes, uncomplicated; F31.9 Bipolar disorder, unspecified; F19.24 Other psychoactive substance dependence with psychoactive substance-induced mood disorder; F43.10 Post-traumatic stress disorder, unspecified; E78.5 Hyperlipidemia, unspecified; K21.9 Gastro-esophageal reflux disease without esophagitis; M54.50 Low back pain, unspecified; G89.29 Other chronic pain; D57.3 Sickle-cell trait; R94.31 Abnormal electrocardiogram [ECG] [EKG]; Q82.0 Hereditary lymphedema; Z91.410 Personal history of adult physical and sexual abuse; S43.014A Anterior dislocation of right humerus, initial encounter; Y04.2XXA Assault by strike against or bumped into by another person, initial encounter; Y92.239 Unspecified place in hospital as the place of occurrence of the external cause; Y99.9 Unspecified external cause status
CPT/HCPCS: 36415; 80053; 81025; 85027; 86780; C9803-CS; U0003; U0005

== ENCOUNTER 2022-06-16 18:12 | Emergency (ER) | payer OTHER ==
[2022-06-16 18:31] VITALS: TEMP 96.9; BMI 26.9
[2022-06-16] MEDS ORDERED: SODIUM CHLORIDE 1,000 ML IV STA (19:13)
[2022-06-16] MEDS ORDERED: KETAMINE HCL 200 MG/20 ML VIAL IVPUSH ONE ×4 (19:44→22:45)
[2022-06-16] MEDS ORDERED: KETAMINE HCL 200 MG/20 ML VIAL ONE ×2 (20:25→21:00)
[2022-06-16] MEDS ORDERED: LIDOCAINE HCL 1%, 10 MG/ML (20ML VIAL) ONE (20:31)
[2022-06-16 21:53] VITALS: RESP 20
[2022-06-16 21:54] VITALS: BP 156/91; PULSE 103
[2022-06-16] MEDS ORDERED: KETAMINE HCL 500 MG/10 ML VIAL ONE (22:29)
[2022-06-16] MEDS ORDERED: PROPOFOL 20 ML ONE (22:54)
[2022-06-16] MEDS ORDERED: MIDAZOLAM HCL 2 MG/2 ML SINGLE DOSE VIAL IVPUSH ONE ×2 (23:18→23:25)
[2022-06-16] MEDS ORDERED: MIDAZOLAM HCL 2 MG/2 ML SINGLE DOSE VIAL ONE ×2 (23:19→23:22)
== END 2022-06-17 01:55 | disposition home or self-care (01) ==
LOC: JER 18:12
PROC: 3E033GC Introduction of Other Therapeutic Substance into Peripheral Vein, Percutaneous Approach (ICD-10-PCS; principal; 2022-06-16)
PROC: 3E033GC Introduction of Other Therapeutic Substance into Peripheral Vein, Percutaneous Approach (ICD-10-PCS; 2022-06-16)
PROC: 3E033GC Introduction of Other Therapeutic Substance into Peripheral Vein, Percutaneous Approach (ICD-10-PCS; 2022-06-16)
PROC: 3E033NZ Introduction of Analgesics, Hypnotics, Sedatives into Peripheral Vein, Percutaneous Approach (ICD-10-PCS; 2022-06-16)
DX: S43.014A Anterior dislocation of right humerus, initial encounter (principal); Y04.0XXA Assault by unarmed brawl or fight, initial encounter
CPT/HCPCS: 73030-TC-RT-FY; 99284-25

== ENCOUNTER 2023-07-08 17:21 | Inpatient (IN) | payer OTHER ==
[2023-07-08 19:36] VITALS: BMI 33.8
[2023-07-08] MEDS ORDERED: guaiFENesin 600 MG TABLET.ER (FP) PO PRN (22:16)
[2023-07-08] MEDS ORDERED: ACETAMINOPHEN 325 MG TABLET (FP) PO PRN (22:16)
[2023-07-08] MEDS ORDERED: MAGNESIUM HYDROX 2400MG/30ML ORAL SUSPENSION 30 ML CUP PO PRN (22:16)
[2023-07-08] MEDS ORDERED: NALOXONE HCL (KLOXXADO) 8 MG SPRAY NS PRN (22:16)
[2023-07-08] MEDS ORDERED: ONDANSETRON *ODT* 4 MG TABLET SL PRN (22:16)
[2023-07-08] MEDS ORDERED: BISMUTH SUBSALICYLATE 524 MG/30 ML PO PRN (22:16)
[2023-07-08] MEDS ORDERED: POLYETHYLENE GLYCOL (HEALTHYLAX) 3350 17 GM PACKET PO PRN (22:16)
[2023-07-08] MEDS ORDERED: BENZONATATE 200 MG CAPSULE PO PRN (22:16)
[2023-07-08] MEDS ORDERED: LOPERAMIDE HCL 2 MG CAPSULE PO PRN (22:16)
[2023-07-08] MEDS ORDERED: IBUPROFEN 400 MG TABLET (FP) PO PRN (22:16)
[2023-07-08] MEDS ORDERED: BENZOCAINE/MENTHOL (CHLORASEPTIC ) LOZENGE MM PRN (22:16)
[2023-07-08] MEDS ORDERED: DICYCLOMINE HCL 10 MG CAPSULE PO PRN (22:16)
[2023-07-08] MEDS ORDERED: NICOTINE POLACRILEX 2 MG GUM BUC PRN (22:16)
[2023-07-08] MEDS ORDERED: MAG HYDROX/AL HYDROX/SIMETH 30 ML UNIT-DOSE CUP PO PRN (22:16)
[2023-07-08] MEDS ORDERED: NALOXONE HCL 0.4 MG/ML VIAL IM PRN (22:16)
[2023-07-08] MEDS ORDERED: IBUPROFEN 600 MG TABLET (FP) PO ONE (23:09)
[2023-07-08] MEDS: IBUPROFEN 600 MG TABLET (FP) PO PRN (23:19)
[2023-07-09] MEDS: METHOCARBAMOL 500 MG TABLET PO PRN ×2 (01:15→17:06)
[2023-07-09] MEDS: hydrOXYzine PAMOATE 25 MG CAPSULE (FP) PO PRN ×2 (01:15→22:14)
[2023-07-09] MEDS: chlordiazePOXIDE HCL 25 MG CAPSULE PO SCH ×4 (05:40→22:14)
[2023-07-09] MEDS ORDERED: ONDANSETRON 4 MG/2 ML VIAL IM PRN ×2 (10:31→11:11)
[2023-07-09 10:44] LABS: HEMATOCRIT 34.3 % (32.4-45.2); HEMOGLOBIN 11.9 GM/dL (10.7-15.3); MCHC 34.7 g/dl (32.0-36.0); MEAN CELL VOLUME 80.6 fl (80-96); MEAN PLT VOLUME 8.8 fl (7.5-11.1); PLATELET COUNT 290 10^3/uL (134-434); RBC 4.25 M/mm3 (3.60-5.2); RDW 15.4 % (11.6-15.6); WHITE BLOOD COUNT 6.8 K/mm3 (4.0-10.0)
[2023-07-09 10:48] LABS: POTASSIUM 3.8 mmol/L (3.5-5.1)
[2023-07-09 10:53] LABS: ALBUMIN 2.8 g/dl (3.4-5.0)
[2023-07-09 10:54] LABS: BLOOD UREA NITROGEN 11.3 mg/dL (7-18)
[2023-07-09 10:57] LABS: CREATININE 0.6 mg/dL (0.55-1.3)
[2023-07-09 10:58] LABS: BILIRUBIN,TOTAL 0.3 mg/dL (0.2-1); TOT PROT 5.7 g/dl (6.4-8.2)
[2023-07-09] MEDS: PRENATAL VITAMINS W/ FOLIC ACID TABLET (FP) PO SCH (11:00)
[2023-07-09] MEDS: FAMOTIDINE 20 MG TABLET PO SCH (11:00)
[2023-07-09] MEDS: NICOTINE 21 MG/24 HOURS TOPICAL PATCH TD SCH (11:01)
[2023-07-09] MEDS: BUPRENORPHINE/NALOXONE 2 MG/0.5 MG FILM PACKET SL SCH (11:13)
[2023-07-09] MEDS: IBUPROFEN 600 MG TABLET (FP) PO PRN (17:29)
[2023-07-09] MEDS ORDERED: FLU VACCINE (FLULAVAL) PF 60 MCG/0.5 ML SYRINGE 2023-2024 IM ONE (17:32)
[2023-07-09] MEDS: METHYL SALICYLATE/MENTHOL OINT 30 GM TUBE TP SCH ×4 (21:51→22:36)
[2023-07-09] MEDS: MELATONIN 5 MG TABLETS PO SCH (22:14)
[2023-07-09] MEDS: THIAMINE HCL 100 MG TABLET (FP) PO SCH (22:15)
[2023-07-10] MEDS: chlordiazePOXIDE HCL 25 MG CAPSULE PO SCH ×4 (05:09→22:16)
[2023-07-10] MEDS: BUPRENORPHINE/NALOXONE 2 MG/0.5 MG FILM PACKET SL SCH (10:01)
[2023-07-10] MEDS: hydrOXYzine PAMOATE 25 MG CAPSULE (FP) PO PRN (10:01)
[2023-07-10] MEDS: FAMOTIDINE 20 MG TABLET PO SCH (10:02)
[2023-07-10] MEDS: NICOTINE 21 MG/24 HOURS TOPICAL PATCH TD SCH (10:02)
[2023-07-10] MEDS: METHYL SALICYLATE/MENTHOL OINT 30 GM TUBE TP SCH ×2 (10:02→22:16)
[2023-07-10] MEDS: PRENATAL VITAMINS W/ FOLIC ACID TABLET (FP) PO SCH (10:03)
[2023-07-10] MEDS ORDERED: COLLOIDAL OATMEAL 1 BAR EACH TP PRN (10:30)
[2023-07-10] MEDS ORDERED: FLU VACCINE (FLULAVAL) PF 60 MCG/0.5 ML SYRINGE 2023-2024 IM ONE (12:00)
[2023-07-10] MEDS ORDERED: PNEUMOC 20-VAL CONJ-DIP CRM/PF 0.5 ML SYRINGE IM ONE (12:00)
[2023-07-10] MEDS: IBUPROFEN 600 MG TABLET (FP) PO PRN (14:41)
[2023-07-10] MEDS: METHOCARBAMOL 500 MG TABLET PO PRN ×2 (14:41→22:16)
[2023-07-10] MEDS: chlordiazePOXIDE HCL 25 MG CAPSULE PO PRN ×2 (14:42→19:28)
[2023-07-10 20:42] VITALS: RESP 18
[2023-07-10] MEDS: THIAMINE HCL 100 MG TABLET (FP) PO SCH (22:15)
[2023-07-10] MEDS: MELATONIN 5 MG TABLETS PO SCH (22:15)
[2023-07-11] MEDS ORDERED: chlordiazePOXIDE HCL 10 MG CAPSULE PO PRN
[2023-07-11] MEDS: chlordiazePOXIDE HCL 10 MG CAPSULE PO SCH ×2 (04:44→10:32)
[2023-07-11 08:52] VITALS: BP 142/83; PULSE 82; TEMP 97.5
[2023-07-11] MEDS: BUPRENORPHINE/NALOXONE 2 MG/0.5 MG FILM PACKET SL SCH (10:31)
[2023-07-11] MEDS: FAMOTIDINE 20 MG TABLET PO SCH (10:31)
[2023-07-11] MEDS: PRENATAL VITAMINS W/ FOLIC ACID TABLET (FP) PO SCH (10:31)
[2023-07-11] MEDS: NICOTINE 21 MG/24 HOURS TOPICAL PATCH TD SCH (10:31)
[2023-07-11] MEDS: METHYL SALICYLATE/MENTHOL OINT 30 GM TUBE TP SCH (10:32)
[2023-07-11] MEDS: hydrOXYzine PAMOATE 25 MG CAPSULE (FP) PO PRN (10:33)
[2023-07-12] MEDS ORDERED: chlordiazePOXIDE HCL 10 MG CAPSULE PO SCH (05:00)
[2023-07-13] MEDS ORDERED: chlordiazePOXIDE HCL 10 MG CAPSULE PO ONE (05:00)
== END 2023-07-11 12:00 | disposition home or self-care (01) | DRG 897 ==
LOC: YASAS 17:21 → Y6N 23:55
PROVIDERS: ADMIT Allergy & Immunology; ATTEND Surgery
PROC: HZ2ZZZZ Detoxification Services for Substance Abuse Treatment (ICD-10-PCS; principal; 2023-07-08)
DX: F10.230 Alcohol dependence with withdrawal, uncomplicated (principal); F11.20 Opioid dependence, uncomplicated; F31.9 Bipolar disorder, unspecified; E78.5 Hyperlipidemia, unspecified; K21.9 Gastro-esophageal reflux disease without esophagitis; M17.0 Bilateral primary osteoarthritis of knee; M54.50 Low back pain, unspecified; G89.29 Other chronic pain; Z85.828 Personal history of other malignant neoplasm of skin
CPT/HCPCS: 36415; 71046-TC-FY; 80053; 81025; 85027; 86780; 87635; 87811; 90677; 90686; G0008; Q0162